=== PATIENT | female | born 1970 | race Caucasian/White ===

== ENCOUNTER 2019-03-31 16:07 | Emergency (ER) | payer SELFPAY ==
[2015-03-22 09:51] VITALS: Wt 49.9 kg
[~2019-03-31 16:07] MED LIST: HYDR-317 PO; KET10 PO
--- NOTE | 2019-03-31 16:22 | ER Report ---
History and Physical Time Seen By MD: 16:21 Hx. of Stated Complaint: fell off porch and hurt left hand. previous 2 surgeries on this hand HPI/ROS CHIEF COMPLAINT: Fall, left wrist pain HISTORY OF PRESENT ILLNESS: 48 year old female presents to the ED post fall. She reports she was working on her deck, and currently her steps are made out of cinder block. When she stepped on the cinder blocks to go down the stairs, the top one slipped out under her foot. She states she went straight up in the air and then straight down on her right butt cheek, sacrum, and hands. Reports significant left wrist and thumb pain. The pain starts at the base of her thumb and runs up her radius to the middle of her forearm. Reports pain is sharp and throbbing. Patient reports numbness sensation in all five fingers. REVIEW OF SYSTEMS: Respiratory: No cough, no dyspnea. Cardiovascular: No chest pain, no palpitations. Gastrointestinal: No vomiting, no abdominal pain. Musculoskeletal: Left wrist pain as noted above. Allergies: Coded Allergies: acetaminophen (Verified Adverse Reaction, Severe, NAUSEA/VOMITING, 03/31/19) oxycodone (Verified Adverse Reaction, Severe, NAUSEA/VOMITING, 03/31/19) Home Meds Active Scripts Ketorolac Tromethamine (KETOROLAC TROMETHAMINE) 10 Mg Tab, 10 MG PO Q6H PRN for PAIN for 5 Days, #20 TAB Prov:BETTIN[employer]INDY [employer] 03/31/19 Discontinued Scripts Hydrocodone/Acetaminophen (Lortab 5-325 mg Tablet) 1 Each Tablet, 1-2 TAB PO Q4H, #30 TAB Prov:KELLIE BECERRA MD 03/23/15 Ketorolac Tromethamine (KETOROLAC TROMETHAMINE) 10 Mg Tab, 10 MG PO Q6H, #16 TAB Prov:KELLIE BECERRA MD 03/23/15 Past Medical/Surgical History Past medical hx of migraines, HTN, lymphocytic colitis, frequent UTI, uterine tumor, endometreosis, hashimotos, OCD. Past surgical hx of , tubal ligation. Reviewed Nurses Notes: Yes Hx Smoking: No Exposure to Second Hand Smoke?: No Hx Substance Use Disorder: Yes (pot 1 week ago) Hx Alcohol Use: No Constitutional Vital Sign - Last 24 Hours 03/31/19 03/31/19 03/31/1910/19 16:13 16:30 16:47 17:17 Temp 97.9 Pulse 82 79 Resp 20 B/P (MAP) 177/132 179/111 (133) 171/106 (127) Pulse Ox 98 97 O2 Delivery Room Air 03/31/19 03/31/19 03/31/19 03/31/19 17:20 17:22 17:30 18:00 Pulse 71 68 B/P (MAP) 180/111 (134) 178/113 (134) Pulse Ox 100 100 O2 Flow Rate 15.0 2.0 Physical Exam General Appearance: The patient is alert, has no immediate need for airway p rotection and no current signs of toxicity. Eyes: Pupils equal and round no injection. Respiratory: Chest is non tender, lungs are clear to auscultation. Cardiac: regular rate and rhythm Gastrointestinal: Abdomen is soft and non tender, no masses, bowel sounds normal. Musculoskeletal: Patient has no ROM of wrist or thumb. Very minimal ROM of index through pinky finger. Neck: Neck is supple and non tender. Skin: No rashes or lesions. DIFFERENTIAL DIAGNOSIS: After history and physical exam differential diagnosis was considered for left wrist fracture, left thumb fracture, left wrist sprain. Medical Decision Making EKG/Imaging Imaging PATIENT NAME: Chanelle Goodrich : 1970 MR: [id number] V: [id number] EXAM DATE: ORDERING PHYSICIAN: MINDY DUNBAR TECHNOLOGIST: Location: [facility] Patient: Chanelle Goodrich : 1970 Visit/Account:[id number] Date of Sevice: 03/31/2019 Three views of the sacrum and coccyx Indication: Fall, pain in the tailbone Comparison: None Findings: SI joints are symmetric. Pubic rami are intact. Pubic rami are intact. There is a pars interarticularis defect of L5 with subsequent grade 2 11 mm anterolisthesis L5 on S1. Severe disc narrowing with increased sclerosis is seen at L5-S1. IMPRESSION: 1. No evidence of acute osseous finding involving the sacrum or coccyx. 2. 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 Subsequent grade 2 anterolisthesis L5 on S1. 3. Moderate to severe spondylosis L5-S1 INDICATION: Fall on hand. DATE: 03/31/2019 5:51 PM. TECHNIQUE: XR FOREARM, HAND COMPLETE LEFT COMPARISON: None FINDINGS: No evidence of forearm fracture or dislocation. No acute osseous abnormality at the left hand. There has been a trapeziectomy with corresponding fragmentation and irregularity at the base of the first metacarpal. IMPRESSION: No acute osseous abnormality. ED Course/Re-evaluation ED Course Upon arrival to the ED, patient admitted to the exam room, hx and physical obtained, differentials considered. Patient presented to the ED post fall. She reports she was working on her deck, and currently her steps are made out of Instructure. When she stepped on the cinder blocks to go down the stairs, the top one slipped out under her foot. She states she went straight up in the air and then straight down on her right butt cheek, sacrum, and hands. Reports significant left wrist and thumb pain. The pain starts at the base of her thumb and runs up her radius to the middle of her forearm. Reports pain is sharp and throbbing. Patient reports numbness sensation in all five fingers. On exam, lungs are clear, heart is normal. Patient has no ROM of wrist or thumb. Very minimal flexion of index through pinky finger. IV started. 4mg zofran and 4mg morphine given. Left hand and arm x-ray. Sacrum x-ray ordered. No osseous finding on sacrum or coccyx. On left hand and forearm x-ray, no evidence of forearm fracture or dislocation. No acute osseous abnormality at the left hand. There has been a trapeziectomy with corresponding fragmentation and irregularity at the base of the first metacarpal. Discussed with patient about no fracture noted on x-ray. I will send her home with tramadol for pain and swelling. She will be placed in a thumb spica. She needs to follow-up with Dr. Raman, especially with hx of previous surgeries in the area of injury. Patient agrees with plan of care. Decision to Disposition Date: Mar 31, 2019 Decision to Disposition Time: 18:14 Depart Departure Latest Vital Signs Vital Signs Date Time Temp Pulse Resp B/P (MAP) Pulse Ox O2 Delivery O2 Flow Rate FiO2 03/31/19 18:00 68 178/113 (134) 100 03/31/19 17:22 2.0 03/31/19 16:13 97.9 20 Room Air Impression: Primary Impression: Sprain of wrist Condition: Improved Disposition: HOME OR SELF-CARE Referrals: ROXANA RAMAN MD New Scripts Ketorolac Tromethamine (KETOROLAC TROMETHAMINE) 10 Mg Tab 10 MG PO Q6H PRN for PAIN for 5 Days, #20 TAB Prov: MINDY DUNBAR 03/31/19 Patient Instructions: Wrist Sprain (ED) Additional Instructions: Please drink plenty of water and get plenty of rest. Follow-up with Dr. Raman by the end of the week. You may take toradol every 4-6 hours as needed for pain and swelling. Return to the ER if you experience worsening symptoms including pain, fevers, redness or increased swelling, or for any other concern. Problem Qualifiers Primary Impression: Sprain of wrist Encounter type: initial encounter Laterality: left Qualified Codes: S63.502A - Unspecified sprain of left wrist, initial encounter MINDY DUNBAR Mar 31, 2019 16:22
[2019-03-31] MEDS ORDERED: MORPHINE 4 MG/ML SDV IVP ONE (16:30)
[2019-03-31] MEDS ORDERED: ONDANSETRON 4 MG/2 ML VIAL IVP ONE (16:30)
--- NOTE | 2019-03-31 17:25 | RADIOLOGY IMAGING REPORT ---
[place] [facility] [place] Chanelle Goodrich : 1970 MR: [id number] V: [id number] EXAM DATE: ORDERING PHYSICIAN: MINDY DUNBAR TECHNOLOGIST: Location: [facility] - [place], [place] Patient: Chanelle Goodrich : 1970 Visit/Account:[id number] Date of Sevice: 03/31/2019 Three views of the sacrum and coccyx Indication: Fall, pain in the tailbone Comparison: None Findings: SI joints are symmetric. Pubic rami are intact. Pubic rami are intact. There is a pars interarticularis defect of L5 with subsequent grade 2 11 mm anterolisthesis L5 on S1. Severe disc narrowing with increased sclerosis is seen at L5-S1. IMPRESSION: 1. No evidence of acute osseous finding involving the sacrum or coccyx. 2. 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 Subsequent grade 2 anteroli sthesis L5 on S1. 3. Moderate to severe spondylosis L5-S1 Report Dictated By: Berto Riggins MD at 03/31/2019 5:20 PM Report E-Signed By: Berto Riggins MD at 03/31/2019 5:22 PM WSN:[email or web address]
[2019-03-31 18:00] VITALS: BP 178/113
--- NOTE | 2019-03-31 18:03 | RADIOLOGY IMAGING REPORT ---
FACILITY: PATIENT NAME: Chanelle Goodrich : 1970 MR: [id number] V: [id number] EXAM DATE: ORDERING PHYSICIAN: MINDY DUNBAR TECHNOLOGIST: Location: [facility] [place] Patient: Chanelle Goodrich : 1970 Visit/Account:[id number] Date of Sevice: 03/31/2019 INDICATION: Fall on hand. DATE: 03/31/2019 5:51 PM. TECHNIQUE: XR FOREARM, HAND COMPLETE LEFT COMPARISON: None FINDINGS: No evidence of forearm fracture or dislocation. No acute osseous abnormality at the left h and. There has been a trapeziectomy with corresponding fragmentation and irregularity at the base of the first metacarpal. IMPRESSION: No acute osseous abnormality. Report Dictated By: Leila Guajardo MD at 03/31/2019 5:51 PM Report E-Signed By: Leila Guajardo MD at 03/31/2019 6:00 PM WSN:[email or web address]
--- NOTE | 2019-03-31 18:03 | RADIOLOGY IMAGING REPORT ---
FACILITY: [facility] PATIENT NAME: Chanelle Goodrich : 1970 MR: [id number] V: [id number] EXAM DATE: ORDERING PHYSICIAN: MINDY DUNBAR TECHNOLOGIST: [place] [facility] [place]: Chanelle Goodrich : 1970 Visit/Account:[id number] Date of Sevice: 03/31/2019 INDICATION: Fall on hand. DATE: 03/31/2019 5:51 PM. TECHNIQUE: XR FOREARM, HAND COMPLETE LEFT COMPARISON: None FINDINGS: No evidence of forearm fracture or dislocation. No acute osseous abnormality at the left h and. There has been a trapeziectomy with corresponding fragmentation and irregularity at the base of the first metacarpal. IMPRESSION: No acute osseous abnormality. Report Dictated By: Leila Guajardo MD at 03/31/2019 5:51 PM Report E-Signed By: Leila Guajardo MD at 03/31/2019 6:00 PM WSN:[email or web address]
[2019-03-31] MEDS ORDERED: KET10 PO (18:18)
== END 2019-03-31 18:49 | disposition home or self-care (01) ==
LOC: ER 16:14
DX: S63.502A Unspecified sprain of left wrist, initial encounter (principal); W18.30XA Fall on same level, unspecified, initial encounter
CPT/HCPCS: 72220; 73090; 73130; 96374; 96375; 99284; J2270; J2405